=== PATIENT | female | born 1965 | race Caucasian/White ===

== ENCOUNTER 2018-06-08 17:49 | Emergency (ER) | payer OTHER ==
[2018-06-08] MEDS: SOD CHLORIDE 0.9% 1,000 ML IV (19:13)
[2018-06-08] MEDS: MECLIZINE 12.5 MG TAB PO (19:13)
[2018-06-08] MEDS: ONDANSETRON 4 MG INJ IV (19:13)
[2018-06-08] MEDS: LORAZEPAM 2 MG INJ IV (19:13)
== END 2018-06-08 21:22 | disposition home or self-care (01) ==
LOC: E/R 17:49
DX: R42 Dizziness and giddiness (principal); Z79.82 Long term (current) use of aspirin
CPT/HCPCS: 93005; 96374; 96375; 99284-25